=== PATIENT | male | born 1945 | race Hispanic/Latino ===

== ENCOUNTER 2018-06-06 13:29 | Outpatient (CLI) | payer OTHER | END 2018-06-06 20:37 | disposition home or self-care (01) | LOC: MRI 13:29 | DX: M75.122 Complete rotator cuff tear or rupture of left shoulder, not specified as traumatic (principal) ==

== ENCOUNTER 2018-09-30 08:55 | Outpatient (CLI) | payer OTHER | END 2018-09-30 19:30 | disposition home or self-care (01) | LOC: MRI 08:55 | DX: M47.26 Other spondylosis with radiculopathy, lumbar region (principal) ==

== ENCOUNTER 2023-02-27 12:35 | Outpatient (CLI) | payer OTHER | END 2023-02-27 20:47 | disposition home or self-care (01) | LOC: RAD 12:35 | PROVIDERS: ATTEND Internal Medicine | DX: M25.561 Pain in right knee (principal); S89.81XA Other specified injuries of right lower leg, initial encounter; Y92.89 Other specified places as the place of occurrence of the external cause ==